=== PATIENT | male | born 1970 | race Caucasian/White ===

== ENCOUNTER 2016-11-30 07:41 | Outpatient (CLI) | payer OTHER ==
[2016-11-30 12:32] LABS: CHOL/HDL RATIO 5.4 (<5.0); CHOLESTEROL 206 mg/dL; GLUCOSE 85 mg/dL (70-100); HDL CHOLESTEROL 38 mg/dL; LDL/HDL RATIO 2.9 (<3.6); TRIGLYCERIDES 288 mg/dL; VLDL CHOLESTEROL 58 mg/dL
== END 2016-11-30 07:42 | disposition home or self-care (01) ==
LOC: LAB.F 07:41
PROVIDERS: ATTEND Internal Medicine
DX: Z00.00 Encounter for general adult medical examination without abnormal findings (principal); E78.5 Hyperlipidemia, unspecified; M25.562 Pain in left knee; M25.561 Pain in right knee
CPT/HCPCS: 36415; 80061; 82947

== ENCOUNTER 2018-11-05 08:22 | Outpatient (CLI) | payer OTHER ==
[2018-11-05 17:50] LABS: CHOLESTEROL 217 mg/dL; GLUCOSE,FASTING 95 mg/dL (70-100); HDL CHOLESTEROL 43 mg/dL; LDL CHOLESTEROL,CALCULATED 138 mg/dL; LDL/HDL RATIO 3.2 (<3.6); VLDL CHOLESTEROL 36 mg/dL
== END 2018-11-05 08:23 | disposition home or self-care (01) ==
LOC: LAB.S 08:22
PROVIDERS: ATTEND Internal Medicine
DX: E78.5 Hyperlipidemia, unspecified (principal); Z13.1 Encounter for screening for diabetes mellitus
CPT/HCPCS: 36415; 80061; 82947; 83721

== ENCOUNTER 2021-02-07 13:46 | Outpatient (CLI) | payer OTHER ==
[2021-02-07 20:11] LABS: ESTIMATED AVERAGE GLUCOSE 108 mg/dL (70-100); HEMOGLOBIN A1c% 5.4 % (4.27-6.07)
[2021-02-07 20:23] LABS: CHOL/HDL RATIO 4.9 (<5.0); CHOLESTEROL 205 mg/dL; HDL CHOLESTEROL 42 mg/dL; LDL CHOLESTEROL,CALCULATED 100 mg/dL; LDL/HDL RATIO 2.4 (<3.6); TRIGLYCERIDES 316 mg/dL; VLDL CHOLESTEROL 63 mg/dL
== END 2021-02-07 13:47 | disposition home or self-care (01) ==
LOC: LAB.S 13:46
PROVIDERS: ATTEND Internal Medicine
DX: Z13.1 Encounter for screening for diabetes mellitus (principal); Z13.220 Encounter for screening for lipoid disorders
CPT/HCPCS: 36415; 80061; 83036; 83721